=== PATIENT | female | born 2000 | race Two or more races ===

== ENCOUNTER 2022-09-06 19:51 | Emergency (ER) | payer SELFPAY ==
[~2022-09-06] VITALS: Ht 160 cm; Wt 54.5 kg
[2022-09-06 20:13] VITALS: BP 128/78
[2022-09-07] MEDS ORDERED: TETANUS-DIPTH-ACEL PERTUSSIS 0.5ML SYR Tdap IM ONE (00:30)
== END 2022-09-07 01:33 | disposition home or self-care (01) ==
LOC: ER 19:54
DX: S61.211A Laceration without foreign body of left index finger without damage to nail, initial encounter (principal); F17.290 Nicotine dependence, other tobacco product, uncomplicated; W26.0XXA Contact with knife, initial encounter; Y93.89 Activity, other specified; Y92.89 Other specified places as the place of occurrence of the external cause; Y99.8 Other external cause status
CPT/HCPCS: 12001; 90471; 90715